=== PATIENT | male | born 1965 | race Caucasian/White ===

== ENCOUNTER → 2024-02-28 07:30 | Outpatient (REF) | payer BC, SELFPAY | LOC: PAVMRI 07:30 | PROVIDERS: ATTENDING PHYSICIAN Psychiatry & Neurology Neurology; FAMILY PHYSICIAN Family Medicine | DX: D49.7 Neoplasm of unspecified behavior of endocrine glands and other parts of nervous system (principal) | CPT/HCPCS: 72157; 72158; A9575 ==

== ENCOUNTER → 2025-04-16 11:05 | Outpatient (REF) | payer BC, SELFPAY | LOC: PAVMRI 11:05 | PROVIDERS: ATTENDING PHYSICIAN Psychiatry & Neurology Neurology; FAMILY PHYSICIAN Family Medicine | DX: D49.7 Neoplasm of unspecified behavior of endocrine glands and other parts of nervous system (principal) | CPT/HCPCS: 72157; 72158; A9575 ==